=== PATIENT | female | born 1995 | race Caucasian/White ===

== ENCOUNTER 2018-06-07 20:20 | Emergency (ER) | payer MEDICAID, OTHER ==
[~2018-06-07] VITALS: Ht 157.5 cm; Wt 63.5 kg
[2018-06-07 20:51] VITALS: BP 133/91
== END 2018-06-07 22:52 | disposition home or self-care (01) ==
LOC: ER 20:26
DX: J06.9 Acute upper respiratory infection, unspecified (principal); J45.901 Unspecified asthma with (acute) exacerbation; Z88.1 Allergy status to other antibiotic agents
CPT/HCPCS: 99283; A4606